=== PATIENT | male | born 1970 | race Native Hawaiian/Other Pacific Islander ===

== ENCOUNTER 2021-04-25 23:22 | Emergency (ER) | payer SELFPAY ==
[2021-04-25 23:28] VITALS: BP 171/108
--- NOTE | 2021-04-26 00:06 | XRay Report ---
CHEST 2 VIEWS INDICATION / CLINICAL INFORMATION: CP. COMPARISON: 03/09/12 FINDINGS: SUPPORT DEVICES: None. HEART / MEDIASTINUM: No significant abnormality. LUNGS / PLEURA: Subtle, patchy bilateral pulmonary opacities. No pneumothorax. ADDITIONAL FINDINGS: No significant additional findings. IMPRESSION: 1. Subtle bilateral pulmonary opacities are nonspecific but could potentially represent early atypica l pneumonia. Signer Name: Libra Smith MD Signed: 04/26/2021 12:02 AM Workstation Name: [id number]
[2021-04-26 00:37] LABS: Basophils % (Auto) 0.1 % (0.0-1.8); Eosinophils # (Auto) 0.1 K/mm3 (0.0-0.4); Eosinophils % (Auto) 1.1 % (0.0-4.3); Hematocrit 47.6 % (35.5-45.6); Hemoglobin 15.4 gm/dl (11.8-15.2); Lymphocytes # (Auto) 1.5 K/mm3 (1.2-5.4); Lymphocytes % (Auto) 22.8 % (13.4-35.0); Mean Corpuscular HGB Conc 32 % (32-34); Mean Corpuscular Volume 86 fl (84-94); Monocytes # (Auto) 0.7 K/mm3 (0.0-0.8); Monocytes % (Auto) 9.8 % (0.0-7.3); Platelet Count 242 K/mm3 (140-440); Red Blood Count 5.54 M/mm3 (3.65-5.03); Red Cell Distribution Width 13.9 % (13.2-15.2)
[2021-04-26 00:39] LABS: Alanine Aminotransferase 39 units/L (7-56); Albumin 4.2 g/dL (3.9-5); BUN/Creatinine Ratio 15; Blood Urea Nitrogen 12 mg/dL (9-20); Calcium 8.8 mg/dL (8.4-10.2); Hemolysis Index 0
[2021-04-26] MEDS ORDERED: AZITHROMYCIN 250 MG TAB PO ONE (02:21)
[2021-04-26] MEDS ORDERED: dexAMETHasone 20 MG/5 ML VIAL IV ONE (02:21)
[2021-04-26] MEDS ORDERED: cefTRIAXone/NS 1 GM/50 ML 1 GM/50 ML BAG IV ONE (02:21)
[2021-04-26] MEDS ORDERED: SODIUM CHLORIDE 0.9% 1000 ML 1,000 ML IV ONE (02:23)
[2021-04-26] MEDS ORDERED: levoFLOXacin 500 MG TAB PO ONE (03:45)
--- NOTE | 2021-04-26 04:08 | Emergency Department Report ---
ED General Adult HPI - General Chief complaint: Chest Pain Stated complaint: CHEST PAIN AND COUGH Time Seen by Provider: 04/26/21 02:11 Source: family Mode of arrival: Ambulatory Limitations: No Limitations - History of Present Illness Initial comments: Patient 51-year-old male who presents for generalized body aches and cough productive yellow-green x1 week. Patient states he believes he has COVID. Patient denies nausea vomiting there is no dizziness lightheadedness , symptoms are exacerbated by activity. Symptoms are relieved by nothing tried. Patient denies other sick contacts. - Related Data Previous Rx's Medication Instructions Recorded Last Taken Type Albuterol Mdi (or & Nicu Only) 2 puff IH QID PRN #8.5 gram 04/26/21 Unknown Rx [ProAir HFA Inhaler] Azithromycin 500 mg PO DAILY #5 04/26/21 Unknown Rx dexAMETHasone [Decadron] 4 mg PO Q8H #21 tablet 04/26/21 Unknown Rx Allergies Allergy/AdvReac Type Severity Reaction Status Date / Time No Known Allergies Allergy Unverified 04/25/21 23:26 ED Review of Systems ROS: Stated complaint: CHEST PAIN AND COUGH Other details as noted in HPI Constitutional: chills, fever, malaise Eyes: as per HPI ENT: ear pain, throat pain, congestion Respiratory: cough, shortness of breath, wheezing Cardiovascular: chest pain (Chest wall pain). denies: palpitations Endocrine: no symptoms reported Gastrointestinal: as per HPI. denies: abdominal pain, nausea, vomiting Genitourinary: denies: urgency, dysuria Musculoskeletal: back pain Skin: denies: rash, lesions Neurological: denies: headache, weakness, paresthesias, vertigo Psychiatric: denies: anxiety, depression Hematological/Lymphatic: denies: easy bleeding, easy bruising ED Past Medical Hx - Past Medical History Previous Medical History?: No - Surgical History Past Surgical History?: No - Medications Home Medications: Home Medications Medication Instructions Recorded Confirmed Last Taken Type Albuterol Mdi (or & Nicu Only) 2 puff IH QID PRN #8.5 gram 04/26/21 Unknown Rx [ProAir HFA Inhaler] Azithromycin 500 mg PO DAILY #5 04/26/21 Unknown Rx dexAMETHasone [Decadron] 4 mg PO Q8H #21 tablet 04/26/21 Unknown Rx ED Physical Exam - General Limitations: No Limitations General appearance: alert, in no apparent distress - Head Head exam: Present: normocephalic, normal inspection - Eye Eye exam: Present: normal appearance, PERRL, EOMI. Absent: conjunctival injection, nystagmus Pupils: Present: normal accommodation - ENT ENT exam: Present: normal orophraynx, mucous membranes moist, TM's normal bilaterally, normal external ear exam - Neck Neck exam: Present: normal inspection, full ROM. Absent: tenderness, lymphadenopathy, thyromegaly - Respiratory Respiratory exam: Present: normal lung sounds bilaterally, chest wall tenderness. Absent: respiratory distress, wheezes, rales, rhonchi, stridor, prolonged expiratory - Cardiovascular Cardiovascular Exam: Present: regular rate, normal rhythm, normal heart sounds - GI/Abdominal GI/Abdominal exam: Present: soft, normal bowel sounds. Absent: distended, tende rness, guarding, rebound, rigid, bruit, hernia - Rectal Rectal exam: Present: deferred - Extremities Exam Extremities exam: Present: normal inspection, full ROM, normal capillary refill. Absent: pedal edema - Back Exam Back exam: Present: normal inspection, full ROM. Absent: CVA tenderness (R), CVA tenderness (L) - Neurological Exam Neurological exam: Present: alert, oriented X3, CN II-XII intact, normal gait - Expanded Neurological Exam Expanded Patient oriented to: Present: person, place, time Speech: Present: fluid speech Motor strength exam: RUE: 5, LUE: 5, RLE: 5, LLE: 5 Best Eye Response ([place]): (4) open spontaneously Best Motor Response ([place]): (6) obeys commands Best Verbal Response ([place]): (5) oriented [place] Total: 15 - Psychiatric Psychiatric exam: Present: normal affect, normal mood - Skin Skin exam: Present: warm, dry, intact, normal color. Absent: rash ED Course Vital Signs 04/25/21 23:25 Temperature 98.0 F Pulse Rate 91 H Respiratory 18 Rate Blood Pressure 171/108 O2 Sat by Pulse 93 Oximetry ED Medical Decision Making - Lab Data Result diagrams: 04/25/21 23:52 04/25/21 23:52 Labs 04/25/21 04/25/21 04/25/21 23:31 23:52 23:52 WBC 6.7 RBC 5.54 H Hgb 15.4 H Hct 47.6 H MCV 86 MCH 28 MCHC 32 RDW 13.9 Plt Count 242 Lymph % (Auto) 22.8 [place] % (Auto) 9.8 H Eos % (Auto) 1.1 Baso % (Auto) 0.1 Lymph # (Auto) 1.5 [place] # (Auto) 0.7 Eos # (Auto) 0.1 Baso # (Auto) 0.0 Seg Neutrophils % 66.2 Seg Neutrophils # 4.5 Sodium 138 Potassium 3.9 Chloride 100.3 Carbon Dioxide 23 Anion Gap 19 BUN 12 Creatinine 0.8 Estimated GFR > 60 BUN/Creatinine Ratio 15 Glucose 187 H POC Glucose 164 H Calcium 8.8 Total Bilirubin 0.70 AST 38 ALT 39 Alkaline Phosphatase 131 H Troponin T < 0.010 Total Protein 7.7 Albumin 4.2 Albumin/Globulin Ratio 1.2 04/26/21 02:29 WBC RBC Hgb Hct MCV MCH MCHC RDW Plt Count Lymph % (Auto) [place] % (Auto) Eos % (Auto) Baso % (Auto) Lymph # (Auto) [place] # (Auto) Eos # (Auto) Baso # (Auto) Seg Neutrophils % Seg Neutrophils # Sodium Potassium Chloride Carbon Dioxide Anion Gap BUN Creatinine Estimated GFR BUN/Creatinine Ratio Glucose POC Glucose Calcium Total Bilirubin AST ALT Alkaline Phosphatase Troponin T < 0.010 Total Protein Albumin Albumin/Globulin Ratio - EKG Data EKG shows normal: sinus rhythm, axis, intervals, QRS complexes, ST-T waves Rate: normal - EKG Data When compared to previous EKG there are: previous EKG unavailable (NSR No STEMI, interp by ed attending ) Interpretation: normal EKG - Radiology Data Radiology results: report reviewed, image reviewed CHEST 2 VIEWS INDICATION / CLINICAL INFORMATION: CP. COMPARISON: 03/09/12 FINDINGS: SUPPORT DEVICES: None. HEART / MEDIASTINUM: No significant abnormality. LUNGS / PLEURA: Subtle, patchy bilateral pulmonary opacities. No pneumothorax. ADDITIONAL FINDINGS: No significant additional findings. IMPRESSION: 1. Subtle bilateral pulmonary opacities are nonspecific but could potentially represent early atypical pneumonia. Signer Name: Libra Smith MD Signed: 04/26/2021 12:02 AM Workstation Name: [id number] Transcribed By: DT Dictated By: Miguel mSith MD Electronically Authenticated By: Miguel Smith MD Signed Date/Time: 04/26/21 0002 - Medical Decision Making Chest x-ray bilateral pulm opacities, plan treat for Pneumonia, vital signs are stable, breathing is improved. Pain is improved per patient. Will DC to home with prescriptions, nebulizer, steroids short burst. Follow-up with primary care doctor in 2 to 3 days. Return to emergency department should symptoms worsen. Patient verbalized agreement and understanding with discharge plan. Patient DC'd home in stable condition at this time. Critical care attestation.: If time is entered above; I have spent that time in minutes in the direct care of this critically ill patient, excluding procedure time. ED Disposition Clinical Impression: Person under investigation for COVID-19 CAP (community acquired pneumonia) Qualifiers: Laterality: unspecified laterality Qualified Code(s): J18.9 - Pneumonia, u nspecified organism Disposition: HOME / SELF CARE / HOMELESS Is pt being admited?: No Does the pt Need Aspirin: No Instructions: Bacterial Pneumonia (ED), Community-Acquired Pneumonia, Adult Additional Instructions: Take all medications as prescribed, follow-up with your doctor in 2 to 3 days. Quarantine as directed. Return to emergency should symptoms worsen. Prescriptions: Azithromycin 500 mg PO DAILY #5 dexAMETHasone [Decadron] 4 mg PO Q8H #21 tablet Albuterol Mdi (or & Nicu Only) [ProAir HFA Inhaler] 2 puff IH QID PRN #8.5 gram PRN Reason: Shortness Of Breath Referrals: PIETRO MURO MD [Staff Physician] - 3-5 Days Forms: Work/School Release Form(ED) Time of Disposition: 04:26
== END 2021-04-26 04:50 | disposition home or self-care (01) ==
LOC: ED 23:22
DX: J18.9 Pneumonia, unspecified organism (principal)
CPT/HCPCS: 36415; 71046; 80053; 82962; 84484; 85025; 93005; 93010; 96361; 96374; 99284; J0696; J1100; J7030; Q0162